=== PATIENT | female | born 1965 | race Caucasian/White ===

== ENCOUNTER 2023-08-27 19:36 | Emergency (ER) | payer BC ==
[~2023-08-27] VITALS: Ht 165.1 cm; Wt 61.0 kg
[2023-08-27] MEDS: SODIUM CHLORIDE 0.9% 1,000 ML IV ONE (21:12)
[2023-08-27 21:16] LABS: BASOPHILS % 0.5 % (0.0-2.0); EOSINOPHILS % 2.6 % (0.0-5.0); HEMATOCRIT. 37.1 % (36.0-48.0); HEMOGLOBIN. 12.6 g/dL (12.0-16.0); MEAN CORPUSCULAR HEMOGLOBIN 32.7 pg (28.0-32.0); MEAN CORPUSCULAR HGB CONC 33.8 g/dL (31.0-37.0); MEAN CORPUSCULAR VOLUME 96.6 fL (81.0-99.0); MEAN PLATELET VOLUME 7.8 fl (7.4-10.4); MONOCYTES % 11.5 % (2.0-8.0); NEUTROPHILS % 61.4 % (40.0-76.0); PLATELET 219 x1000/uL (130-400); RED BLOOD CELL COUNT 3.84 mill/uL (4.2-5.4); RED CELL DISTRIBUTION WIDTH 12.9 % (11.6-14.6); WHITE BLOOD COUNT 6.4 x1000/uL (4.5-11.0)
[2023-08-27 21:29] LABS: ALANINE AMINOTRANSFERASE 23 IU/L (10-49); ALBUMIN 4.8 g/dL (3.2-4.8); ASPARTATE AMINOTRANSFERASE 32 IU/L (<34); BILIRUBIN TOTAL 0.4 mg/dL (0.1-1.0); CALCIUM 9.1 mg/dL (8.7-10.4); CARBON DIOXIDE 25 mEq/L (21-32); CHLORIDE 104 mEq/L (98-107); CREATININE 0.8 mg/dL (0.6-1.0); GLUCOSE 81 mg/dL (70-105); POTASSIUM 4.4 mEq/L (3.5-5.1); PROTEIN TOTAL 7.8 g/dL (6.0-8.3); SODIUM 138 mEq/L (136-145); UREA NITROGEN BLOOD 20 mg/dL (9-23)
[2023-08-27] MEDS: MORPHINE SULFATE 4 MG/ML INJ (FOR IV/IM USE) IV STA (21:34)
[2023-08-27] MEDS: ONDANSETRON HCL 4MG/2ML INJ IV STA (21:35)
[2023-08-27 21:45] VITALS: RESP 18; O2SAT 99
[2023-08-27] MEDS: KETAMINE HCL 50 MG/ML 10ML IV ONE (21:59)
[2023-08-27] MEDS: PROPOFOL 200MG/20ML VIAL IV ONE (22:00)
[2023-08-27] MEDS ORDERED: IBUP-2029 MT (22:42)
[2023-08-27] MEDS ORDERED: T3 PO (23:51)
[2023-08-28 02:00] VITALS: BP 134/87; PULSE 83; RESP 13; TEMP 97.6
== END 2023-08-28 04:36 | disposition home or self-care (01) ==
LOC: ER 19:36
DX: S52.602A Unspecified fracture of lower end of left ulna, initial encounter for closed fracture (principal); R94.31 Abnormal electrocardiogram [ECG] [EKG]; Z98.890 Other specified postprocedural states; W01.0XXA Fall on same level from slipping, tripping and stumbling without subsequent striking against object, initial encounter; Y93.89 Activity, other specified; Y92.520 Airport as the place of occurrence of the external cause; Y99.8 Other external cause status
CPT/HCPCS: 80053; 85025; 36415; 73110; 93005; 25605; 96361; 96374; 96375; 99152; 99285; J3490; J2405; J2704; J2270; J7030; Z7610 ×4